=== PATIENT | female | born 1960 | race Caucasian/White ===

== ENCOUNTER → 2025-10-05 08:00 | Outpatient (REF) | payer MEDICARE, SELFPAY | LOC: HWRCS 08:00 | PROVIDERS: ATTENDING PHYSICIAN Family Medicine | DX: R00.2 Palpitations (principal); Z86.79 Personal history of other diseases of the circulatory system; Z78.0 Asymptomatic menopausal state; H53.9 Unspecified visual disturbance; R51.9 Headache, unspecified; H93.13 Tinnitus, bilateral; Z12.31 Encounter for screening mammogram for malignant neoplasm of breast | CPT/HCPCS: 77063; 77067; 77080; 93306; 93880 ==